=== PATIENT | male | born 1970 | race Caucasian/White ===

== ENCOUNTER 2020-07-29 20:55 | Emergency (ER) | payer OTHER ==
[2020-07-29 21:49] LABS: BASOPHIL 0.3 % (0-2); EOSINOPHIL 1.7 % (0-5); HCT 41.8 % (42.0-52.0); HGB 14.9 g/dl (13.2-18.0); LYMPHOCYTE 27.2 % (15-48); MCH 31.6 pg (25.0-31.0); MCHC 35.6 g/dL (32.0-36.0); MCV 88.6 fL (78.0-100.0); MONOCYTE 9.2 % (0-12); MPV 11.6 fL (6.0-9.5); NEUTROPHIL 61.3 % (41-80); NRBC 0; PLT 175 K/uL (150-400); RBC 4.72 M/uL (4.70-6.00); RDW 12.2 % (11.5-14.0); WBC 7.5 K/uL (4.0-10.5)
[2020-07-29 21:54] LABS: INR 1.04 (0.9-1.2); PROTHROMBIN TIME 12.9 SECONDS (11.4-13.6); PTT 34.9 SECONDS (22.2-34.7)
[2020-07-29 21:55] LABS: D-DIMER 0.31 ug/mLFEU (0.00-0.41)
[2020-07-29 22:02] LABS: ALBUMIN 4.1 g/dL (3.4-5.0); BILIRUBIN - TOTAL 1.7 mg/dL (0.2-1.0); BUN/CREAT RATIO (CALC) 15.8 RATIO; CREATININE 1.01 mg/dL (0.67-1.17); GLOBULIN (CALCULATION) 3.5 g/dL; POTASSIUM 3.8 mmol/L (3.5-5.1); TOTAL PROTEIN 7.6 g/dL (6.4-8.2)
[2020-07-30] MEDS ORDERED: ROBAXIN500 MG PO (01:03)
[2020-07-30] MEDS ORDERED: IBUPROFEN800 MG PO (01:03)
== END 2020-07-30 01:15 | disposition home or self-care (01) ==
LOC: FER 20:55
PROVIDERS: Emergency Medicine Emergency Medical Services
DX: R07.89 Other chest pain (principal); R11.0 Nausea; Z86.16 Personal history of COVID-19; Z88.0 Allergy status to penicillin
CPT/HCPCS: 36415; 71045; 80053; 83690; 84484; 85025; 85379; 85610; 85730; 93005; J1885; J2930